=== PATIENT | female | born 1945 | race Caucasian/White ===

== ENCOUNTER 2017-03-05 07:55 | Outpatient (CLI) | payer MEDICARE, OTHER | END 2017-03-05 07:56 | disposition home or self-care (01) | DX: M81.0 Age-related osteoporosis without current pathological fracture (principal) ==

== ENCOUNTER 2017-03-09 09:18 | Outpatient (CLI) | payer MEDICARE, OTHER | END 2017-03-09 09:19 | disposition home or self-care (01) | DX: E87.6 Hypokalemia (principal); Z79.899 Other long term (current) drug therapy ==

== ENCOUNTER 2018-05-06 08:15 | Outpatient (CLI) | payer MEDICARE, OTHER ==
[2018-05-06 17:24] LABS: EOSINOPHILS # (AUTO) 0.1 10^3/uL (0.0-0.7); EOSINOPHILS % (AUTO) 1.5 %; HGB - HEMOGLOBIN 13.2 g/dL (12.0-16.0); LYMPHOCYTES # (AUTO) 1.3 10^3/uL (1.5-3.5); LYMPHOCYTES % (AUTO) 33.6 %; MEAN CORPUSCULAR HEMOGLOBIN 34.5 pg (27.0-31.0); MEAN CORPUSCULAR HGB CONC 32.9 g/dL (32.0-36.0); MEAN CORPUSCULAR VOLUME 104.9 fL (81.0-99.0); MEAN PLATELET VOLUME 7.4 fL (7.9-10.8); MONOCYTES # (AUTO) 0.4 10^3/uL (0.0-1.0); MONOCYTES % (AUTO) 9.8 %; NEUTROPHILS # (AUTO) 2.1 10^3/uL (1.5-6.6); NEUTROPHILS % (AUTO) 54.1 %; PLT - PLATELET COUNT 284 10^3/uL (130-450); RED BLOOD COUNT 3.81 10^6/uL (4.20-5.40); RED CELL DISTRIBUTION WIDTH 14.6 % (12.0-15.0); WHITE BLOOD COUNT 3.8 x10^3/uL (4.8-10.8)
[2018-05-06 18:49] LABS: ALBUMIN 4.3 g/dL (3.2-5.5); ALBUMIN/GLOBULIN RATIO 1.1 (1.0-2.2); ALKALINE PHOSPHATASE 84 IU/L (42-121); ALT ALANINE AMINOTRANSFERASE 19 IU/L (10-60); AST ASPARTATE AMINOTRANSFERASE 35 IU/L (10-42); BILIRUBIN,TOTAL 0.5 mg/dL (0.2-1.0); BUN - BLOOD UREA NITROGEN 33 mg/dL (6-20); CALCIUM 9.5 mg/dL (8.5-10.3); CARBON DIOXIDE - CO2 28 mmol/L (21-32); CHLORIDE 99 mmol/L (101-111); CHOL/HDL RATIO 2.9 (<4.4); CHOLESTEROL 282 mg/dL; GFR - MDRD 55 (>89); GLUCOSE 98 mg/dL (70-100); HDL CHOLESTEROL 98 mg/dL; LDL CHOLESTEROL,CALCULATED 165 mg/dL; LDL/HDL RATIO 1.7 (<4.4); SODIUM 136 mmol/L (135-145); TOTAL PROTEIN 8.2 g/dL (6.7-8.2); VLDL CHOLESTEROL 19 mg/dL
[2018-05-07 15:18] LABS: HEPATITIS C ANTIBODY NON-REACTIVE (NON-REACTIVE)
== END 2018-05-06 08:16 | disposition home or self-care (01) ==
LOC: LAB.S 08:15
PROVIDERS: ATTEND Physician Assistant Medical
DX: E55.9 Vitamin D deficiency, unspecified (principal); D70.4 Cyclic neutropenia; I10 Essential (primary) hypertension; E78.2 Mixed hyperlipidemia; F32.9 Major depressive disorder, single episode, unspecified; Z13.818 Encounter for screening for other digestive system disorders; Z72.89 Other problems related to lifestyle; Z79.899 Other long term (current) drug therapy
CPT/HCPCS: 36415; 80053; 80061; 82306; 83721; 84443; 85025; 86803

== ENCOUNTER 2018-07-29 13:42 | Outpatient (CLI) | payer MEDICARE, OTHER ==
[2018-07-29 18:13] LABS: CALCIUM 9.7 mg/dL (8.5-10.3); CREATININE 0.9 mg/dL (0.4-1.0)
== END 2018-07-29 13:43 | disposition home or self-care (01) ==
LOC: LAB.S 13:42
PROVIDERS: ATTEND Physician Assistant Medical
DX: N28.9 Disorder of kidney and ureter, unspecified (principal)
CPT/HCPCS: 36415; 80048

== ENCOUNTER 2019-02-10 08:00 | Outpatient (CLI) | payer MEDICARE, OTHER ==
[2019-02-10 17:49] LABS: CALCIUM 9.5 mg/dL (8.5-10.3); CREATININE 0.7 mg/dL (0.4-1.0)
[2019-02-10 18:05] LABS: THYROID STIMULATING HORMONE 0.82 uIU/mL (0.34-5.60)
[2019-02-10 18:06] LABS: FREE T4 (FREE THYROXINE) 0.6 ng/dL (0.58-1.64)
== END 2019-02-10 23:59 | disposition home or self-care (01) ==
LOC: LAB.S 08:00
PROVIDERS: ATTEND Family Medicine
DX: E87.1 Hypo-osmolality and hyponatremia (principal); I10 Essential (primary) hypertension
CPT/HCPCS: 36415; 80048; 84439; 84443; 84481

== ENCOUNTER 2019-04-12 14:45 | Outpatient (CLI) | payer MEDICARE, OTHER | END 2019-04-12 14:46 | disposition critical access hospital (66) | LOC: EMS 14:45 | PROVIDERS: ATTEND Surgery | DX: S99.912A Unspecified injury of left ankle, initial encounter (principal); W01.0XXA Fall on same level from slipping, tripping and stumbling without subsequent striking against object, initial encounter; Y92.009 Unspecified place in unspecified non-institutional (private) residence as the place of occurrence of the external cause | CPT/HCPCS: A0425; A0429 ==

== ENCOUNTER 2019-04-12 15:24 | Emergency (ER) | payer MEDICARE, OTHER ==
[2019-04-12] MEDS ORDERED: KETOROLAC 30 MG/ML VIAL IVP STA (15:30)
--- NOTE | 2019-04-12 15:30 | ED Physician Documentation ---
PD HPI Fall - Stated complaint Stated Complaint: ANKLE PX - History obtained from History obtained from: Patient - History of Present Illness Mechanism of injury: Slipped (73-year-old woman started amitriptyline a few nights ago and got dizzy today and slipped and fell in the kitchen. She the back of her head on the refrigerator on the way down but did not lose consciousness nor does she have a headache. She is not anticoagulated. She t urned her left ankle and has pain there and is unable to walk but declines pain medication on initial evaluation. No other injuries.) Review of Systems Constitutional: denies: Fever, Chills Nose: reports: Reviewed and negative Cardiac: reports: Reviewed and negative Respiratory: reports: Reviewed and negative PD PAST MEDICAL HISTORY - Present Medications Home Medications: Ambulatory Orders Medication Instructions Recorded Confirmed Knee Scooter 1 unit TD ONCE #1 04/12/19 oxyCODONE [Roxicodone] 1 - 2 tab PO Q4H PRN #20 tablet 04/12/19 traZODone [Desyrel] 50 mg PO HS #30 tablet 04/12/19 - Allergies Allergies/Adverse Reactions: Allergies Allergy/AdvReac Type Severity Reaction Status Date / Time JUNIE Inhibitors Allergy Anaphylaxis Verified 04/12/19 16:07 methadone AdvReac Unknown Verified 04/12/19 16:07 PD ED PE NORMAL - Vitals Vital signs reviewed: Yes - General General: Alert and oriented X 3, No acute distress - HEENT HEENT: PERRL, EOMI - Neck Neck: Supple, no meningeal sign, No bony TTP - Cardiac Cardiac: RRR, No murmur - Respiratory Respiratory: No respiratory distress, Clear bilaterally - Abdomen Abdomen: Normal bowel sounds, Soft, Non tender - Back Back: No CVA TTP, No spinal TTP - Derm Derm: Normal color, Warm and dry - Extremities Extremities: Other (She has a floppy left ankle consistent with at least a bimalleolar fracture. She can claims no tenderness with palpation. However the nurse reported to me later that she was feeling a lot of pain with palpation.) - Neuro Neuro: Alert and oriented X 3, Normal speech - Psych Psych: Normal mood, Normal affect Results - Vitals Vitals: Vital Signs - 24 hr 04/12/19 15:39 Temperature 36.8 C Heart Rate 100 Respiratory 12 Rate Blood Pressure 126/77 O2 Saturation 94 Oxygen O2 Source Room air - Rads (name of study) L ankle 3v Radiology: EMP read contemporaneously (Comminuted and displaced bimalleolar fracture) Procedures - Splint (location) LLE Splint applied by: Physician, Clay Type of splint: Fiberglass, Long leg, Posterior, Stirrup Other: Patient tolerated well, No complications, Neurovascular intact, Good alignment (improved alignment using gravity, pt homero well) PD MEDICAL DECISION MAKING - ED course ED course: This is a very pleasant 73-year-old woman who presents with a somewhat angulated bimalleolar fracture that is comminuted of her left ankle. Case was discussed by phone Dr. Rahman who recommended closed reduction and splinting. Recommended splinting and upright and seated position with the leg dangling and patient was amenable, as such she was not sedated for this although that was the original plan and the propofol was returned. The original incident tonight was probably because of the new antrum amitriptyline and she requested a replacement. Mostly for sleep. Departure - Departure Disposition: Home, Self Care Clinical Impression: Bimalleolar fracture of left ankle Qualifiers: Encounter type: initial encounter Fracture type: closed Qualified Code(s): S82.842A - Displaced bimalleolar fracture of left lower leg, initial encounter for closed fracture Condition: Good Record reviewed to determine appropriate education?: Yes Health Concerns: Left bimalleolar fracture Plan of Treatment: Reduced/splinted, will need orthopedic followup and surgery Care Goals: Left bimalleolar fracture healing Assessment: Left bimalleolar fracture Instructions: ED Fx Lower Ext, ED Splint Care Fiberglass Follow-Up: [facility] [Provider Group] Prescriptions: Knee Scooter 1 unit TD ONCE #1 oxyCODONE [Roxicodone] 1 - 2 tab PO Q4H PRN #20 tablet PRN Reason: Pain traZODone [Desyrel] 50 mg PO HS #30 tablet Comments: Elevate as much as possible. Do not bear weight on it, do not get the splint wet. Follow-up with the orthopedic surgeon on Sunday for a comminuted closed bimalleolar fracture that will need surgery within the week. Return for new or worsening symptoms. You can take Tylenol and ibuprofen in addition to the oxycodone as needed for the pain per package instructions.
--- NOTE | 2019-04-12 16:03 | XRAY Report ---
Reason: ankle inj Procedure Date: 04/12/2019 Accession Number: [id number] / [id number] Procedure: XR - Ankle 3 View LT CPT Code: FULL RESULT: EXAM: LEFT ANKLE RADIOGRAPHY EXAM DATE: 04/12/2019 03:48 PM. CLINICAL HISTORY: Ankle injury with deformity. COMPARISON: None. TECHNIQUE: 3 views. FINDINGS: Bones: There is a comminuted and displaced fracture of the inferior tibia and fibula. There is a multi comminuted fracture of the medial malleolus which is displaced laterally by approximately 18 mm. There is an oblique fracture of the inferior fibula with lateral displacement and angulation. Joints: No dislocation, although the inferior fracture fragments are displaced laterally and there is lateral and posterior subluxation of talus with respect to the tibia. Soft Tissues: There is generalized soft tissue swelling. IMPRESSION: 1. Comminuted inferior tibia and fibula fracture with lateral and posterior displacement of the talus and distal fracture fragments with respect to the proximal tibia RADIA
[2019-04-12] MEDS ORDERED: PROPOFOL 200 MG/20 ML VIAL IVP STA (16:44)
[2019-04-12] MEDS ORDERED: PROPOFOL 200 MG/20 ML VIAL IVP ONE (16:52)
[2019-04-12 17:50] VITALS: BP 123/78
== END 2019-04-12 17:47 | disposition home or self-care (01) ==
LOC: EDUNIT# → ED 15:24
DX: S82.842A Displaced bimalleolar fracture of left lower leg, initial encounter for closed fracture (principal); W01.198A Fall on same level from slipping, tripping and stumbling with subsequent striking against other object, initial encounter; Y93.G3 Activity, cooking and baking; Y92.000 Kitchen of unspecified non-institutional (private) residence as the place of occurrence of the external cause; R00.0 Tachycardia, unspecified
CPT/HCPCS: 29505; 96374; 99283

== ENCOUNTER 2020-04-15 07:49 | Outpatient (CLI) | payer MEDICARE, OTHER ==
[2020-04-15 17:07] LABS: ALBUMIN 4.5 g/dL (3.2-5.5); ALBUMIN/GLOBULIN RATIO 1.3 (1.0-2.2); ALKALINE PHOSPHATASE 132 IU/L (42-121); ALT ALANINE AMINOTRANSFERASE 70 IU/L (10-60); AST ASPARTATE AMINOTRANSFERASE 97 IU/L (10-42); BILIRUBIN,TOTAL 0.7 mg/dL (0.2-1.0); BUN - BLOOD UREA NITROGEN 21 mg/dL (6-20); CALCIUM 9.7 mg/dL (8.5-10.3); CARBON DIOXIDE - CO2 25 mmol/L (21-32); CHLORIDE 98 mmol/L (101-111); CHOL/HDL RATIO 2.1 (<4.4); CHOLESTEROL 294 mg/dL; CREATININE 1.2 mg/dL (0.4-1.0); GLUCOSE 111 mg/dL (70-100); HDL CHOLESTEROL 142 mg/dL; LDL CHOLESTEROL,CALCULATED 136 mg/dL; SODIUM 136 mmol/L (135-145); TOTAL PROTEIN 8.1 g/dL (6.7-8.2); VLDL CHOLESTEROL 16 mg/dL
== END 2020-04-15 07:50 | disposition home or self-care (01) ==
LOC: LAB.S 07:49
PROVIDERS: ATTEND Family Medicine
DX: Z00.00 Encounter for general adult medical examination without abnormal findings (principal)
CPT/HCPCS: 36415; 80053; 80061; 82306; 83721

== ENCOUNTER 2021-08-28 15:23 | Outpatient (CLI) | payer MEDICARE, OTHER | END 2021-08-28 15:24 | disposition short-term general hospital (02) | LOC: EMS 15:23 | DX: M79.605 Pain in left leg (principal) | CPT/HCPCS: A0425; A0429 ==

== ENCOUNTER 2022-02-09 14:22 | Outpatient (CLI) | payer MEDICARE, OTHER | END 2022-02-09 14:23 | disposition short-term general hospital (02) | LOC: EMS 14:22 | DX: S89.91XA Unspecified injury of right lower leg, initial encounter (principal); R55 Syncope and collapse; R42 Dizziness and giddiness; W18.39XA Other fall on same level, initial encounter; Y92.003 Bedroom of unspecified non-institutional (private) residence as the place of occurrence of the external cause | CPT/HCPCS: A0425; A0429 ==

== ENCOUNTER 2022-12-11 08:00 | Outpatient (CLI) | payer MEDICARE, OTHER | END 2022-12-11 23:59 | disposition home or self-care (01) | LOC: LAB.S 08:00 | PROVIDERS: ATTEND Physician Assistant Medical | DX: N39.0 Urinary tract infection, site not specified (principal) | CPT/HCPCS: 87086 ==

== ENCOUNTER 2023-08-14 08:51 | Outpatient (CLI) | payer MEDICARE, OTHER ==
[2023-08-14 14:39] LABS: BASOPHILS % (AUTO) 0.6 %; EOSINOPHILS # (AUTO) 0.1 10^3/uL (0.0-0.7); EOSINOPHILS % (AUTO) 2.1 %; HCT - HEMATOCRIT 36.5 % (37.0-47.0); HGB - HEMOGLOBIN 11.9 g/dL (12.0-16.0); LYMPHOCYTES # (AUTO) 1.8 10^3/uL (1.5-3.5); MEAN CORPUSCULAR HEMOGLOBIN 32.5 pg (27.0-31.0); MEAN CORPUSCULAR HGB CONC 32.6 g/dL (32.0-36.0); MEAN CORPUSCULAR VOLUME 99.7 fL (81.0-99.0); MEAN PLATELET VOLUME 9.4 fL (7.9-10.8); MONOCYTES # (AUTO) 0.5 10^3/uL (0.0-1.0); MONOCYTES % (AUTO) 10.1 %; NEUTROPHILS # (AUTO) 2.9 10^3/uL (1.5-6.6); PLT - PLATELET COUNT 276 10^3/uL (130-450); RED BLOOD COUNT 3.66 10^6/uL (4.20-5.40); RED CELL DISTRIBUTION WIDTH 12.5 % (12.0-15.0); WHITE BLOOD COUNT 5.4 x10^3/uL (4.8-10.8)
[2023-08-14 15:37] LABS: ALBUMIN 4.6 g/dL (3.2-5.5); ALBUMIN/GLOBULIN RATIO 1.3 (1.0-2.2); ALKALINE PHOSPHATASE 166 IU/L (42-121); ALT ALANINE AMINOTRANSFERASE 13 IU/L (10-60); AST ASPARTATE AMINOTRANSFERASE 26 IU/L (10-42); BILIRUBIN,TOTAL 0.4 mg/dL (0.2-1.0); BUN - BLOOD UREA NITROGEN 23 mg/dL (6-20); CARBON DIOXIDE - CO2 29 mmol/L (21-32); CHLORIDE 97 mmol/L (101-111); ETOH - ETHANOL < 10.0 mg/dL; GFR - MDRD 54 (>89); GLUCOSE 126 mg/dL (74-104); POTASSIUM 4.2 mmol/L (3.5-4.5); SODIUM 134 mmol/L (135-145); TOTAL PROTEIN 8.1 g/dL (6.4-8.9)
== END 2023-08-14 08:52 | disposition home or self-care (01) ==
LOC: LAB.S 08:51
PROVIDERS: ATTEND Family Medicine
DX: D64.9 Anemia, unspecified (principal); R79.89 Other specified abnormal findings of blood chemistry; E87.1 Hypo-osmolality and hyponatremia; Z79.899 Other long term (current) drug therapy
CPT/HCPCS: 36415; 80053; 85025; G0480; 80320

== ENCOUNTER 2023-11-24 08:00 | Outpatient (CLI) | payer MEDICARE, OTHER | END 2023-11-24 08:01 | disposition home or self-care (01) | LOC: LAB.S 08:00 | PROVIDERS: ATTEND Physician Assistant Medical | DX: B35.4 Tinea corporis (principal); L30.9 Dermatitis, unspecified | CPT/HCPCS: 82962 ==

== ENCOUNTER 2024-04-12 08:00 | Outpatient (CLI) | payer MEDICARE, OTHER | END 2024-04-12 23:59 | disposition home or self-care (01) | LOC: LAB.S 08:00 | PROVIDERS: ATTEND Physician Assistant Medical | DX: N30.01 Acute cystitis with hematuria (principal) | CPT/HCPCS: 87086; 87181 ==

== ENCOUNTER 2024-05-02 10:27 | Outpatient (CLI) | payer MEDICARE, OTHER ==
[2024-05-02] MEDS ORDERED: iohexoL-300 150 ML BOTTLE ONE (10:57)
[2024-05-02] MEDS: iohexoL-300 150 ML BOTTLE IVP ONE (11:16)
--- NOTE | 2024-05-02 14:13 | CT Report ---
PROCEDURE: IVP INDICATIONS: HEMATURIA CONTRAST: 140ml omni 300 TECHNIQUE: A [address] of the abdomen and pelvis was performed. Non-contrast and contrast images were recorded and evaluated at appropriate window settings. Images were recorded and evaluated at appropriate windo w settings. Reformats: coronal and sagittal. For radiation dose reduction, the following was used: au tomated exposure control, adjustment of mA and/or kV according to patient size. COMPARISON: None FINDINGS: Image quality: Diagnostic Lower chest: Scattered scarring and atelectasis. No hiatal hernia. Normal heart size Liver: Mild hepatic steatosis. Possible geographic areas of hypoattenuation favored also to represent steatosis seen in the right lobe of the liver, particularly adjacent to the gallbladder (/). Gallbladder and biliary system: Distended gallbladder. No biliary ductal dilation Pancreas: Moderate parenchymal atrophy Spleen: Nonenlarged Adrenals: 1.6 cm right adrenal nodule. Kidneys: Left calyceal mass measuring 3 x 2.4 cm (). No solid cortical renal mass. No hydronephr osis. No suspicious ureter mass. The distal ureters are obscured by metallic artifact Vessels and lymph nodes: The main portal vein is patent. No abdominal aortic aneurysm. No pathologic lymph nodes by size criteria. Bowel and peritoneum: There is focal wall thickening of the duodenum, with mild surrounding fat stran ding. No small bowel junction or pathologic ascites Body wall: Small fat-containing umbilical hernia Pelvis: Bladder is unremarkable on limited CT evaluation. Prostate is heterogeneous. Small filling de fect at the bladder neck, not well evaluated due to metallic artifact, possibly representing median l obe hypertrophy from the prostate. Bones: Bilateral hip arthroplasties. The right sided posterior screw extends beyond the cortex into t he gluteal muscles. Degenerative osseous changes. IMPRESSION: Left calyceal mass suspicious for transitional cell carcinoma as a source of hematuria. This is less likely a central renal cell carcinoma. The left renal vein is patent. No hydronephrosis. The pelvis is obscured by metallic artifact. The lower tracts could be better evaluated using cystosc opy. Consider also PSA correlation for the prostate. Small filling defect at the bladder neck may rep resent prostate median lobe hypertrophy, not well evaluated on this study. Indeterminate hypoattenuation in the liver, possibly representing regional steatosis. 1.6 cm right adrenal nodule, usually adrenal adenoma. In the setting of probable malignancy, consider abdominal MRI to evaluate both findings (using the vicente protocol for both findings.) Other findings above. Reviewed by: Jatin Armenta MD on 05/02/2024 2:11 PM PDT Approved by: Jatin Armenta MD on 05/02/2024 2:11 PM PDT Station ID: [id number]
== END 2024-05-02 10:28 | disposition home or self-care (01) ==
LOC: DI 10:27
PROVIDERS: ATTEND Family Medicine
DX: R31.0 Gross hematuria (principal); N28.89 Other specified disorders of kidney and ureter; R93.41 Abnormal radiologic findings on diagnostic imaging of renal pelvis, ureter, or bladder; E27.8 Other specified disorders of adrenal gland

== ENCOUNTER 2024-06-06 08:19 | Outpatient (CLI) | payer MEDICARE, OTHER | END 2024-06-06 08:20 | disposition home or self-care (01) | LOC: LAB.S 08:19 | PROVIDERS: ATTEND Urology | DX: R31.0 Gross hematuria (principal) | CPT/HCPCS: 87086 ==

== ENCOUNTER 2024-06-16 07:08 | Outpatient (CLI) | payer MEDICARE, OTHER | END 2024-06-16 07:09 | disposition home or self-care (01) | LOC: LAB.S 07:08 | PROVIDERS: ATTEND Urology | DX: R31.0 Gross hematuria (principal) | CPT/HCPCS: 87086 ==